=== PATIENT | female | born 1975 | race Hispanic/Latino ===

== ENCOUNTER 2018-10-02 09:09 | Outpatient (CLI) | payer OTHER ==
--- NOTE | 2018-10-04 16:45 | PFT ---
PATIENT HISTORY: HEIGHT:61 IN WEIGHT: 178 SMOKER: YES HOW LON YRS PACKS PER DAY: 1/2 PRODUCTIVE COUGH: NO LUNG DISEASE: PHYSICIAN INTERPRETATION FINAL REPORT: FEV1 is normal, FVC is only mildly reduced at 2.53 liters. Mid flows are normal. Total lung capacity is mildly reduced. FEV1 ratio is increased. Diffusion was not done. IMPRESSION: Overall, this study suggests a mild restrictive defect. Clinical correlation is recommended Chain Maker: News Copy Editor: ROSANNA MARION
== END 2018-10-02 09:10 | disposition home or self-care (01) ==
LOC: CP 09:09
PROVIDERS: ATTEND Family Medicine
DX: J44.9 Chronic obstructive pulmonary disease, unspecified (principal); F17.210 Nicotine dependence, cigarettes, uncomplicated
CPT/HCPCS: 94060; 94727

== ENCOUNTER 2019-06-24 10:24 | Day surgery (SDC) | payer OTHER ==
[2019-06-24] MEDS ORDERED: PROPOFOL 200 MG/20 ML VIAL ONE (12:33)
[2019-06-24] MEDS ORDERED: HYDROcodone/Acetaminophen 5/325 mg Tablet ONE (13:23)
--- NOTE | 2019-06-24 16:50 | OP ---
DATE OF PROCEDURE: 06/24/2019 VICE PRESIDENT OF SOFTWARE DEVELOPMENT SURGEON: None. PROCEDURES PERFORMED: Esophagogastroduodenoscopy with esophageal biopsies and esophageal dilation. INDICATIONS: 1. Epigastric pain. 2. GERD. 3. Dysphagia. MEDICATIONS: See Anesthesia record. FINDINGS: After discussion of the risks, benefits, and alternatives of the procedure, informed consent was obtained and witnessed. Pre-endoscopic cardiopulmonary examination was satisfactory. Time-out was performed before sedation was achieved. Sedation was achieved with Anesthesia assistance in the endoscopy unit. A Pentax adult upper endoscope was placed into the oropharynx and passed through the cricopharyngeus under direct visualization. The esophageal mucosa appeared normal throughout. There was no evidence of active esophagitis. There was no stricture evident. No other structural abnormalities. The Z-line is at 35 cm from the incisors. There is a single tongue of salmon-colored mucosa extending upward for a distance of only 1 cm, consistent with possible Card esophagus. Biopsies were obtained from this area to rule out Card esophagus. The endoscope was advanced into the stomach. Forward and retroflexed views of the entire gastric mucosa were obtained. The gastric mucosa appeared normal throughout. The endoscope was advanced through the pylorus and into the first and second portions of the duodenum, which also appeared normal. At this point, a Savary spring tipped guidewire was passed down the accessory port with the tip of the guidewire placed in the gastric antrum. The endoscope was removed leaving the guidewire in place. I performed a single pass with an 18 mm Savary dilator down the esophagus. The dilator and guidewire were completely removed. The endoscope was inserted back into the esophagus for re-examination. The esophageal mucosa appeared unchanged. The upper endoscope was completely withdrawn and the patient allowed to recover. The patient tolerated the procedure well. There were no immediate postprocedure complications. IMPRESSION: 1. Single tongue of salmon-colored mucosa measuring only 1 cm in length, at the gastroesophageal junction. Biopsied to rule out Card's mucosa. 2. Otherwise normal esophagus, with no endoscopic findings to explain the patient's dysphagia. The esophagus was empirically dilated to 18 mm. 3. Otherwise normal esophagogastroduodenoscopy. RECOMMENDATIONS: 1. Follow up esophageal biopsies. If Card's is confirmed, the patient will need to continue on long-term PPI, and repeat EGD in 3 years. 2. For now, try increasing the dose of omeprazole to 40 mg once daily. 3. Follow up in the [facility] with physician child nutrition assistant in 2 months. Job ID: [id number]
== END 2019-06-24 13:54 ==
LOC: SDC 10:24 → EEVIPCON 10:24 → SDC 13:54
PROVIDERS: ATTEND Internal Medicine
PROC: 0DB48ZZ Excision of Esophagogastric Junction, Via Natural or Artificial Opening Endoscopic (ICD-10-PCS; principal; 2019-06-24)
PROC: 0D758ZZ Dilation of Esophagus, Via Natural or Artificial Opening Endoscopic (ICD-10-PCS; principal; 2019-06-24)
DX: K21.0 Gastro-esophageal reflux disease with esophagitis (principal); R13.10 Dysphagia, unspecified; D64.9 Anemia, unspecified; E66.9 Obesity, unspecified; F41.9 Anxiety disorder, unspecified; F32.9 Major depressive disorder, single episode, unspecified; E78.00 Pure hypercholesterolemia, unspecified; K59.09 Other constipation; Z79.899 Other long term (current) drug therapy; Z87.891 Personal history of nicotine dependence
CPT/HCPCS: 88305; 88312; 88313